=== PATIENT | female | born 1985 | race Caucasian/White ===

== ENCOUNTER 2017-07-17 20:48 | Emergency (ER) | payer OTHER ==
[2017-07-17 21:07] VITALS: BP 146/84; PULSE 75; TEMP 98; BMI 32.8
--- NOTE | 2017-07-17 21:14 | PDOC ---
History of Present Illness - General Chief Complaint: Injury Stated Complaint: [employer] IN[employer] Time Seen by Provider: 07/17/17 21:09 History Source: Patient - History of Present Illness Occurred: reports: just prior to arrival Upper Extremity Pain Location: right: thumb Method of Injury: reports: twisted Past History - Past Medical History Allergies/Adverse Reactions: Allergies Allergy/AdvReac Type Severity Reaction Status Date / Time No Known Allergies Allergy Verified 07/17/17 21:01 Home Medications: Ambulatory Orders NK [No Known Home Medication] 09/25/14 Suicide Attempt (Hx): No Other medical history: Pt denies - Psycho/Social/Smoking Cessation Hx Suicidal Ideation: No Smoking Status: No Smoking History: Never smoked Have you smoked in the past 12 months: No Number of Cigarettes Smoked Daily: 0 Information on smoking cessation initiated: No Hx Alcohol Use: No Drug/Substance Use Hx: No Substance Use Type: None Review of Systems - Review of Systems Musculoskeletal: Yes: Joint Pain, Joint Swelling *Physical Exam - Vital Signs Last Vital Signs Temp Pulse Resp BP Pulse Ox 98.0 F 75 20 146/84 100 07/17/17 21:02 07/17/17 21:02 07/17/17 21:02 07/17/17 21:02 07/17/17 21:02 - Physical Exam General Appearance: Yes: Appropriately Dressed. No: Apparent Distress Neck: positive: Supple Respiratory/Chest: negative: Respiratory Distress Extremity: positive: Other (minimal swelling to R thumnb diffusely, no deformity otherwise and no snuffbox ttp, FROMI) Medical Decision Making - Medical Decision Making 07/17/17 21:13 32 yo F, works as a nursing home assistant administrator on at [employer], p/w c/o RUE injury while at work tonight. Pt states while trying to restrain a pt who was attempting to leave his stretcher, states patient grabbed hold of her right hand and pulled on thumb. Since then has had pain and swelling to right thumb. Has ice applied to area currently See exam Thumb sprain No e/o fx -dc w/ pain control 07/17/17 21:23 07/17/17 21:36 *DC/Admit/Observation/Transfer Diagnosis at time of Disposition: Thumb sprain Qualifiers: Encounter type: initial encounter Sprain of finger site: other site Laterality : right Qualified Code(s): S63.681A - Other sprain of right thumb, initial encounter - Discharge Dispostion Disposition: HOME Condition at time of disposition: Good - Patient Instructions Printed Discharge Instructions: Sprain Additional Instructions: Take Motrin for pain as needed and wear wrist brace for comfort. If symptoms persist or worsen, return to the ED - Post Discharge Activity Work/School Note: Back to Work
[2017-07-17] MEDS ORDERED: IBUPROFEN 400 MG TABLET (FP) PO ONE ×2 (21:22→21:27)
== END 2017-07-17 21:36 | disposition home or self-care (01) ==
LOC: JERFT 20:48
DX: S63.681A Other sprain of right thumb, initial encounter (principal); W50.0XXA Accidental hit or strike by another person, initial encounter; Y93.F9 Activity, other caregiving; Y92.230 Patient room in hospital as the place of occurrence of the external cause; Y99.0 Civilian activity done for income or pay
CPT/HCPCS: 99281-25

== ENCOUNTER 2017-07-18 10:27 | Emergency (ER) | payer OTHER ==
[2017-07-18 10:36] VITALS: BP 109/79; PULSE 72; TEMP 98; BMI 31.8
--- NOTE | 2017-07-18 11:57 | PDOC ---
History of Present Illness - General Chief Complaint: Injury Stated Complaint: EMPLOYEE, INJURY Time Seen by Provider: 07/18/17 10:44 - History of Present Illness Initial Comments: 07/18/17 11:50 CHIEF COMPLAINT: HISTORY OF PRESENT ILLNESS: No recent travel or sick contacts. PAST MEDICAL HISTORY: Denies past medical history FAMILY HISTORY: Denies SOCIAL HISTORY: Lives at home with ____. Occupation: . Denies tobacco, alcohol, illicit drug use. SURGICAL HISTORY: Denies ALLERGIES: No known drug allergies REVIEW OF SYSTEMS General/Constitutional: Denies fever or chills. Denies weakness, weight change. HEENT: Denies change in vision. Denies ear pain or discharge. Denies sore throat. Cardiovascular: Denies chest pain or shortness of breath. Respiratory: Denies cough, wheezing, or hemoptysis. Gastrointestinal: Denies nausea, vomiting, diarrhea or constipation. Denies rectal bleeding. Genitourinary: Denies dysuria, frequency, or change in urination. Musculoskeletal: Denies joint or muscle swelling or pain. Denies neck or back pain. Skin and breasts: Denies rash or easy bruising. Neurologic: Denies headache, vertigo, loss of consciousness, or loss of sensation. Psychiatric: Denies depression or anxiety. Endocrine: Denies increased thirst. Denies abnormal weight change. Hematologic/Lymphatic: Denies anemia, easy bleeding, or history of blood clots. Allergic/Immunologic: Denies hives or skin allergy. Denies latex allergy. PHYSICAL EXAM General Appearance: Well-appearing, appropriately dressed. No apparent distress , no intoxication. HEENT: EOMI, PERRLA, normal ENT inspection, normal voice, TMs normal, pharynx normal. No conjunctival pallor. No photophobia, scleral icterus. Neck: Supple. Trachea midline. No tenderness, rigidity, carotid bruit, stridor , lymphadenopathy, or thyromegaly. Respiratory/Chest: Lungs CTAB. No shortness of breath, chest tenderness, respiratory distress, accessory muscle use. No crackles, rales, rhonchi, stridor , wheezing, dullness Cardiovascular: RRR. S1, S2. No JVD, murmur, bradycardia, tachycardia. Vascular Pulses: Dorsalis-Pedis (R): 2+, Dorsalis-Pedis (L): 2+ Gastrointestinal/Abdominal: Normal bowel sounds. Abdomen soft, non-distended. No tenderness or rebound tenderness. No organomegaly, pulsatile mass, guarding , hernia, hepatomegaly, splenomegaly. Lymphatic: No adenopathy, tenderness. Musculoskeletal/Extremities: Normal inspection. FROM of all extremities, normal capillary refill. Pelvis Stable. No CVA tenderness. No tenderness to extremities, pedal edema, swelling, erythema or deformity. Integumentary: Appropriate color, dry, warm. No cyanosis, erythema, jaundice or rash Neurologic: alteration worker II-XII intact. Fully oriented, alert. Appropriate mood/affect. Motor strength 5/5. No appreciable EOM palsy, facial droop or sensory deficit. Past History - Past Medical History Allergies/Adverse Reactions: Allergies Allergy/AdvReac Type Severity Reaction Status Date / Time No Known Allergies Allergy Verified 07/18/17 10:33 Home Medications: Ambulatory Orders Diclofenac Sodium 75 mg PO BID #14 tablet. 07/18/17 Suicide Attempt (Hx): No Other medical history: denies - Immunization History Immunization Up to Date: Yes - Psycho/Social/Smoking Cessation Hx Suicidal Ideation: No Smoking Status: No Smoking History: Never smoked Have you smoked in the past 12 months: No Number of Cigarettes Smoked Daily: 0 Hx Alcohol Use: No Drug/Substance Use Hx: No Substance Use Type: None *Physical Exam - Vital Signs Last Vital Signs Temp Pulse Resp BP Pulse Ox 98.0 F 72 20 109/79 100 07/18/17 10:33 07/18/17 10:33 07/18/17 10:33 07/18/17 10:33 07/18/17 10:33 ED Treatment Course - RADIOLOGY Radiology Studies Ordered: Category Date Time Status WRIST W/HAND-RIGHT* [RAD] Stat Radiology 07/18/17 11:24 Taken *DC/Admit/Observation/Transfer Diagnosis at time of Disposition: Thumb sprain Qualifiers: Encounter type: initial encounter Sprain of finger site: metacarpophalangeal joint Laterality: right Qualified Code(s): S63.641A - Sprain of metacarpophalangeal joint of right thumb, initial encounter - Discharge Dispostion Disposition: HOME Condition at time of disposition: Stable Admit: No - Prescriptions Prescriptions: Diclofenac Sodium 75 mg PO BID #14 tablet. - Referrals Referrals: Joel Oconnor MD [Staff Physician] - - Patient Instructions Printed Discharge Instructions: Finger Sprain Additional Instructions: Please follow up with orthopedics within the next 3-4 days for further evaluation of your thumb. Apply RICE therapy (rest, ice compress, elevate) to decrease inflammation. Take medication as prescribed. If you develop loss of sensation, increased swelling, or increased pain to your finger, return to the ER.
[2017-07-18] MEDS ORDERED: KETOROLAC TROMETHAMINE 60 MG/2 ML VIAL IM ONE (12:13)
[2017-07-18] MEDS ORDERED: KETOROLAC TROMETHAMINE 60 MG/2 ML VIAL ONE (12:20)
== END 2017-07-18 12:29 | disposition home or self-care (01) ==
LOC: JERFT 10:27
DX: S63.681D Other sprain of right thumb, subsequent encounter (principal); W50.0XXD Accidental hit or strike by another person, subsequent encounter; Y93.F9 Activity, other caregiving; Y99.0 Civilian activity done for income or pay
CPT/HCPCS: 73110-TC-RT; 73130-TC-RT; 99281-25